=== PATIENT | male | born 2000 | race Caucasian/White ===

== ENCOUNTER 2021-01-23 05:06 | Emergency (ER) | payer OTHER ==
[2021-01-23] MEDS ORDERED: DIAZEPAM 2 MG TABLET ONE (05:44)
--- NOTE | 2021-01-23 06:23 | ER ---
Nurse's Notes [facility] Name: Selin Aguilar Age: 20 yrs Sex: Male : 2000 Arrival Date: 01/23/2021 Time: 05:06 Bed 13 Private MD: Diagnosis: Anxiety disorder, unspecified;Hyperventilation Presentation: 01/23 05:29 Chief complaint: Patient states: SHAKINESS IS WORSE SINCE YESTERDAY. DENIES TAKING ANY rv MEDICATION. Coronavirus screen: Client denies travel out of the [place] in the last 14 days. Ebola Screen: No symptoms or risks identified at this time. Initial Sepsis Screen: Does the patient meet any 2 criteria? No. Patient's initial sepsis screen is negative. Does the patient have a suspected source of infection? No. Patient's initial sepsis screen is negative. Risk Assessment: Do you want to hurt yourself or someone else? Patient reports no desire to harm self or others. Onset of symptoms was January 22, 2021. 05:29 Method Of Arrival: Ambulatory rv 05:29 Acuity: NEETA 3 rv Triage Assessment: 05:30 General: Appears uncomfortable, Behavior is anxious. Pain: Denies pain. EENT: No signs rv and/or symptoms were reported regarding the EENT system. Neuro: Level of Consciousness is awake, alert, obeys commands, Oriented to person, place, time, situation. Cardiovascular: Patient's skin is warm and dry. Rhythm is sinus rhythm. Respiratory: Airway is patent Respiratory effort is even, unlabored. Derm: Skin is intact. Historical: - Allergies: 05:30 No Known Allergies; rv - PMHx: 05:30 None; rv - PSHx: 05:30 None; rv - Immunization history:: Adult Immunizations up to date. - Social history:: Smoking status: Reported history of juuling and/or vaping. - Family history:: not pertinent. - Hospitalizations: : No recent hospitalization is reported. Screenin:31 Abuse screen: Denies threats or abuse. Denies injuries from another. Nutritional rv screening: No deficits noted. Tuberculosis screening: No symptoms or risk factors identified. Fall Risk None identified. Assessment: 06:35 Reassessment: Patient appears in no apparent distress at this time. Patient and/or jb4 family updated on plan of care and expected duration. Pain level reassessed. Patient is alert, oriented x 3, equal unlabored respirations, skin warm/dry/pink. Vital Signs: 05:18 BP 135 / 87; Pulse 84; Resp 24 S; Temp 98.1(O); Pulse Ox 100% on R/A; mw2 06:15 BP 136 / 76; Pulse 66; Resp 16; Pulse Ox 98% on R/A; jb4 ED Course: 05:06 Patient arrived in ED. cl3 05:09 Clark Maharaj MD is Attending Physician. rn 05:18 Josh Ramirez, ENZO is Primary Nurse. rv 05:30 Triage completed. rv 05:31 Arm band placed on left wrist. Patient placed in the treatment room, on a stretcher, rv Patient notified of wait time. 05:31 Patient has correct armband on for positive identification. Pulse ox on. NIBP on. rv 05:32 No provider procedures requiring assistance completed. rv 06:15 Patient did not have IV access during this emergency room visit. jb4 Administered Medications: 05:32 Drug: Valium 2 mg Route: PO; rv Outcome: 06:23 Discharge ordered by . rn 06:36 Discharged to home ambulatory. jb4 06:36 Condition: stable 06:36 Discharge instructions given to patient, Instructed on discharge instructions, follow up and referral plans. medication usage, Demonstrated understanding of instructions, follow-up care, medications, Prescriptions given X 1. 06:37 Patient left the ED. jb4 Signatures: Clark Maharaj MD MD rn Bryson, James, RN RN jb4 Kavita Chacon mw2 Josh Ramirez RN RN rv Urban Roque cl3
--- NOTE | 2021-01-23 06:23 | EDPHYS ---
Physician Documentation [facility] Name: Selin Aguilar Age: 20 yrs Sex: Male : 2000 Arrival Date: 01/23/2021 Time: 05:06 Bed 13 Private MD: ED Physician Clark Maharaj HPI: 01/23 05:29 This 20 yrs old Male presents to ER via Unassigned with complaints of rn Anxiety, Dry Mouth, Numbness Of Face. 05:29 Reports anxiety, dry mouth, intermittent palpitations, numbness over entire body. No rn fever/sob/chest pain/abd pain. No vomiting/diarrhea.. Onset: The symptoms/episode began/occurred a few days ago. Severity of symptoms: At their worst the symptoms were moderate in the emergency department the symptoms have improved. The patient has experienced a previous episode. The patient has not recently seen a physician. Reports long history of anxiety, has only gotten this bad one other time. . Doesn't take anything for anxiety. Historical: - Allergies: 05:30 No Known Allergies; rv - PMHx: 05:30 None; rv - PSHx: 05:30 None; rv - Immunization history:: Adult Immunizations up to date. - Social history:: Smoking status: Reported history of juuling and/or vaping. - Family history:: not pertinent. - Hospitalizations: : No recent hospitalization is reported. ROS: 05:29 Constitutional: Negative for fever, chills, and weight loss, Eyes: Negative for injury, rn pain, redness, and discharge, Neck: Negative for injury, pain, and swelling, Cardiovascular: Negative for chest pain, and edema, Respiratory: Negative for shortness of breath, cough, wheezing, and pleuritic chest pain, Abdomen/GI: Negative for abdominal pain, nausea, vomiting, diarrhea, and constipation, Back: Negative for injury and pain, : Negative for injury, bleeding, discharge, and swelling, MS/Extremity: Negative for injury and deformity, Skin: Negative for injury, rash, and discoloration, Neuro: Negative for headache, weakness, and seizure. 05:29 All other systems are negative. rn Exam: 05:29 Constitutional: This is a well developed, well nourished patient who is awake, alert, rn appears anxious, shaking, ambulatory to room without difficulty Head/Face: Normocephalic, atraumatic. Eyes: Pupils equal round and reactive to light, extra-ocular motions intact. Lids and lashes normal. Conjunctiva and sclera are non-icteric and not injected. Cornea within normal limits. Periorbital areas with no swelling, redness, or edema. Cardiovascular: Regular rate and rhythm. No pulse deficits. Respiratory: Mild tachypnea, able to slow it down with coaching Abdomen/GI: soft, non-tender Skin: Warm, dry MS/ Extremity: Pulses equal, no cyanosis. Neurovascular intact. Full, normal range of motion. Equal circumference. Neuro: Awake and alert, GCS 15, oriented to person, place, time, and situation. Cranial nerves II-XII grossly intact. Motor strength 5/5 in all extremities. Sensory grossly intact. Cerebellar exam normal. Normal gait. Vital Signs: 05:18 BP 135 / 87; Pulse 84; Resp 24 S; Temp 98.1(O); Pulse Ox 100% on R/A; mw2 06:15 BP 136 / 76; Pulse 66; Resp 16; Pulse Ox 98% on R/A; jb4 MDM: 05:09 Patient medically screened. rn 06:19 Differential Diagnosis anxiety, panic attack. Data reviewed: vital signs, nurses notes, furnace attendant test result(s), EKG, and as a result, I will discharge patient. Counseling: I had a detailed discussion with the patient and/or guardian regarding: the historical points, exam findings, and any diagnostic results supporting the discharge/admit diagnosis, lab results, the need for outpatient follow up, to return to the emergency department if symptoms worsen or persist or if there are any questions or concerns that arise at home. Response to treatment: the patient's symptoms have markedly improved after treatment, and as a result, I will discharge patient. Special discussion: I discussed with the patient/guardian in detail that at this point there is no indication for admission to the hospital. It is understood, however, that if the symptoms persist or worsen the patient needs to return immediately for re-evaluation. Based on the history and exam findings, there is no indication for further emergent testing or inpatient evaluation. I discussed with the patient/guardian the need to see the psychiatrist for further evaluation of the symptoms. ED course: Pt feels much better, no longer shaking or having tingling sensation. Stable vitals, normal glucose and no ischemia on ecg. 01/23 05:35 Order name: Glucose, Ancillary Testing EDGA 01/23 05:19 Order name: Glucose Level; Complete Time: 05:32 rn 01/23 05:19 Order name: EKG; Complete Time: 05:19 rn 01/23 05:19 Order name: EKG - Nurse/Tech; Complete Time: 05:32 rn Administered Medications: 05:32 Drug: Valium 2 mg Route: PO; rv Disposition: 01/23/21 06:23 Discharged to Home. Impression: Anxiety disorder, unspecified, Hyperventilation. - Condition is Stable. - Discharge Instructions: Panic Attacks, Hyperventilation, Generalized Anxiety Disorder. - Prescriptions for Zoloft 50 mg Oral Tablet - take 1 tablet by ORAL route once daily; 60 tablet. - Medication Reconciliation Form, Thank You Letter, Antibiotic Education, Prescription Opioid Use form. - Follow up: Private Physician; When: As needed; Reason: Recheck today's complaints, Re-evaluation by your physician. - Problem is an acute exacerbation. - Symptoms have improved. Signatures: Dispatcher [employer] [facility] Clark Maharaj MD MD rn Bryson, James, RN RN jb4 Josh Ramirez RN RN rv Corrections: (The following items were deleted from the chart) 06:37 06:23 01/23/2021 06:23 Discharged to Home. Impression: Anxiety disorder, unspecified; jb4 Hyperventilation. Condition is Stable. Forms are Medication Reconciliation Form, Thank You Letter, Antibiotic Education, Prescription Opioid Use. Follow up: Private Physician; When: As needed; Reason: Recheck today's complaints, Re-evaluation by your physician. Problem is an acute exacerbation. Symptoms have improved. rn
[2021-01-23 06:42] VITALS: TEMP 98.1
[2021-01-23 06:43] VITALS: BP 136/76; O2SAT 98
== END 2021-01-23 06:37 | disposition home or self-care (01) ==
LOC: ER 05:06
DX: R06.4 Hyperventilation (principal)
CPT/HCPCS: 82947; 93005; 99284

== ENCOUNTER 2021-01-28 05:41 | Emergency (ER) | payer OTHER ==
[2021-01-28] MEDS ORDERED: LORazepam 2 MG/ML VIAL ONE (06:31)
[2021-01-28 06:40] LABS: Absolute Lymphocytes (CBC) 2.2 K/uL (0.7-4.9); Basophils % 1.2 % (0-1.3); Hematocrit 46.1 % (39.6-49.0); Lymphocytes % 19.8 % (15.3-44.8); MPV 8.1 fL (7.6-11.3); RBC Red Blood Cell Count 5.42 M/uL (4.33-5.43)
[2021-01-28 06:57] LABS: Barbiturates NEGATIVE (NEGATIVE); Benzodiazepines NEGATIVE (NEGATIVE); Cocaine NEGATIVE (NEGATIVE); METHAMPHETAM NEGATIVE (NEGATIVE); Methadone NEGATIVE (NEGATIVE); Opiates NEGATIVE (NEGATIVE); Phencyclidine NEGATIVE (NEGATIVE); THC Cannibis NEGATIVE (NEGATIVE)
[2021-01-28 07:04] LABS: Protime INR 1.03
[2021-01-28 07:33] LABS: Troponin (Emerg Dept Use Only) < 0.02 ng/mL (0.0-0.045)
[2021-01-28 07:35] LABS: ALT/SGPT 34 U/L (12-78); AST/SGOT 19 U/L (15-37); BUN Blood Urea Nitrogen 12 mg/dL (7-18); Bicarbonate 23 mmol/L (21-32); Bilirubin Direct < 0.1 mg/dL (0-0.2); Bilirubin Total 0.3 mg/dL (0.2-1.0); Glucose Level 111 mg/dL (74-106); Potassium 3.8 mmol/L (3.5-5.1); Protein, Total 8.1 g/dL (6.4-8.2); Sodium Level 141 mmol/L (136-145)
[2021-01-28 07:37] LABS: Alkaline Phosphatase ND U/L (45-117)
--- NOTE | 2021-01-28 07:45 | RAD REPORT ---
EXAM DESCRIPTION: Josr Single View01/28/2021 7:34 am CLINICAL HISTORY: Cough COMPARISON: none FINDINGS: The lungs appear clear of acute infiltrate. The heart is normal size IMPRESSION: No acute abnormalities displayed
[2021-01-28] MEDS ORDERED: ACETAMINOPHEN 500 MG TAB ONE (09:12)
--- NOTE | 2021-01-28 09:26 | ER ---
Nurse's Notes [facility] Name: Selin Aguilar Age: 20 yrs Sex: Male : 2000 Arrival Date: 01/28/2021 Time: 05:41 Bed 16 Private MD: Diagnosis: Anxiety disorder, unspecified Presentation: 01/28 05:50 Chief complaint: Patient states: for the past couple of days i've been anxious, my mg2 heart is racing, i have nausea, dizziness and headache and im worried i have cough with mucus. Coronavirus screen: Client denies travel out of the [place] in the last 14 days. Ebola Screen: No symptoms or risks identified at this time. Initial Sepsis Screen: Does the patient meet any 2 criteria? No. Patient's initial sepsis screen is negative. Does the patient have a suspected source of infection? No. Patient's initial sepsis screen is negative. Risk Assessment: Do you want to hurt yourself or someone else? Patient reports no desire to harm self or others. Onset of symptoms was January 27, 2021. 05:50 Method Of Arrival: Ambulatory mg2 05:50 Acuity: NEETA 3 mg2 Triage Assessment: 05:56 General: Appears in no apparent distress. comfortable, Behavior is calm, cooperative. mg2 Pain: Denies pain. EENT: No deficits noted. Neuro: Level of Consciousness is awake, alert, obeys commands, Oriented to person, place, time, situation. Cardiovascular: Capillary refill < 3 seconds Patient's skin is warm and dry. Respiratory: Airway is patent Respiratory effort is even, unlabored, Respiratory pattern is regular, symmetrical. GI: No signs and/or symptoms were reported involving the gastrointestinal system. : No signs and/or symptoms were reported regarding the genitourinary system. Derm: Skin is intact, is healthy with good turgor, Skin is pink, warm \T\ dry. normal. Musculoskeletal: Circulation, motion, and sensation intact. Capillary refill. Historical: - Allergies: 05:54 No Known Allergies; mg2 - Home Meds: 05:54 Seroquel Oral [Active]; zoloft [Active]; mg2 - PMHx: 05:54 Anxiety; adhd; mg2 - PSHx: 05:54 None; mg2 - Immunization history:: Flu vaccine status is unknown. - Social history:: Smoking status: Reported history of juuling and/or vaping. Patient/guardian denies using alcohol, street drugs, IV drugs. Screenin:57 Abuse screen: Denies threats or abuse. Denies injuries from another. Nutritional mg2 screening: No deficits noted. Tuberculosis screening: No symptoms or risk factors identified. Fall Risk None identified. Assessment: 05:57 General: see triage note. mg2 07:23 Reassessment: Patient states feeling better. General: Appears in no apparent distress. jd3 comfortable, Behavior is calm, cooperative, appropriate for age. Pain: Denies pain. Neuro: Level of Consciousness is awake, alert, obeys commands, Oriented to person, place, time, situation. Cardiovascular: Denies chest pain, Capillary refill < 3 seconds Patient's skin is warm and dry. Respiratory: Airway is patent Respiratory effort is even, unlabored, Respiratory pattern is regular, symmetrical, Denies cough, shortness of breath. GI: No signs and/or symptoms were reported involving the gastrointestinal system. : No signs and/or symptoms were reported regarding the genitourinary system. EENT: No signs and/or symptoms were reported regarding the EENT system. Derm: Skin is intact, Skin is dry, Skin is normal, Skin temperature is warm. Musculoskeletal: Circulation, motion, and sensation intact. Range of motion: intact in all extremities. 08:32 Reassessment: Patient appears in no apparent distress at this time. No changes from jd3 previously documented assessment. Patient and/or family updated on plan of care and expected duration. Pain level reassessed. Patient is alert, oriented x 3, equal unlabored respirations, skin warm/dry/pink. awaiting results. 09:36 Reassessment: Patient appears in no apparent distress at this time. Patient and/or jd3 family updated on plan of care and expected duration. Pain level reassessed. Patient is alert, oriented x 3, equal unlabored respirations, skin warm/dry/pink. pt reported understanding of discharge instructions. even and steady gait upon discharge Patient states feeling better. Vital Signs: 05:50 BP 145 / 67; Pulse 90; Resp 18; Temp 99(TE); Pulse Ox 96% ; Weight 136.08 kg; Height 6 mg2 ft. 4 in. (193.04 cm); Pain 0/10; 07:24 BP 158 / 74; Pulse 81; Resp 17 S; Temp 98.0(TE); Pulse Ox 98% on R/A; jd3 08:31 BP 117 / 79; Pulse 72; Resp 16 S; Pulse Ox 98% on R/A; jd3 09:37 BP 131 / 74; Pulse 79; Resp 17 S; Pulse Ox 99% on R/A; jd3 05:50 Body Mass Index 36.52 (136.08 kg, 193.04 cm) mg2 ED Course: 05:41 Patient arrived in ED. cl3 05:50 Hayden Lutz, RN is Primary Nurse. mg2 05:52 Eric Cabrera MD is Attending Physician. mh7 05:53 Triage completed. mg2 05:54 Arm band placed on. mg2 05:57 No provider procedures requiring assistance completed. mg2 05:58 Patient has correct armband on for positive identification. mg2 06:20 Inserted saline lock: 20 gauge in left forearm, using aseptic technique. Blood mg2 collected. 07:20 Attending Physician role handed off by Eric Cabrera MD kdr 07:20 Kenneth Moran MD is Attending Physician. kdr 07:34 Chest Single View XRAY In Process Unspecified. EDMS 07:43 Primary Nurse role handed off by Hayden Lutz RN 08:31 Ruben Quintana RN is Primary Nurse. jd3 09:37 IV discontinued, intact, bleeding controlled, No redness/swelling at site. Pressure jd3 dressing applied. Administered Medications: 06:20 Drug: Ativan 1 mg Route: IVP; Site: left forearm; mg2 07:20 Follow up: Response: No adverse reaction jd3 08:57 Drug: Tylenol 1000 mg Route: PO; jd3 09:15 Follow up: Response: No adverse reaction jd3 Outcome: 09:25 Discharge ordered by . kdr 09:37 Discharged to home ambulatory, with family. jd3 09:37 Condition: stable 09:37 Discharge instructions given to patient, Instructed on discharge instructions, follow up and referral plans. Demonstrated understanding of instructions, follow-up care. 09:38 Patient left the ED. jd3 Signatures: Dispatcher [employer] EDMS Kenneth Moran MD MD kdr Ruben Quintana RN RN jd3 Kayley Rodriguez Hayden Lutz RN RN mg2 Urban Roque3 Eric Cabrera MD MD mh7 Corrections: (The following items were deleted from the chart) 05:56 05:50 Pulse 90bpm; Resp 18bpm; Pulse Ox 96%; 136.08 kg; Height 6 ft. 4 in.; BMI: 36.5; mg2 Pain 0/10; mg2
--- NOTE | 2021-01-28 09:26 | EDPHYS ---
Physician Documentation [facility] Name: Selin Aguilar Age: 20 yrs Sex: Male : 2000 Arrival Date: 01/28/2021 Time: 05:41 Bed 16 Private MD: ED Physician Kenneth Moran HPI: 01/28 06:53 This 20 yrs old Male presents to ER via Ambulatory with complaints of Rapid mh7 Heart Rate, Dizziness. 06:53 The patient presents with a history of heart racing. Context: The symptoms occur with mh7 anxiety. Onset: The symptoms/episode began/occurred 5 day(s) ago. Duration: The patient or guardian reports multiple episodes, that are intermittent, that wax and wane. Modifying factors: The symptoms are aggravated by anxiety, The symptoms are alleviated by nothing. Associated signs and symptoms: Pertinent positives: cough, lightheadedness, nausea, Pertinent negatives: chest pain, fever, SOB, syncope, near-syncope, unusual stressors, vertigo, vomiting. Severity of symptoms: At their worst the symptoms were moderate 2 day(s) ago, in the emergency department the symptoms are unchanged. The patient has experienced similar episodes in the past, a few times. The patient has been recently seen by a physician: the patient's primary care provider. Historical: - Allergies: 05:54 No Known Allergies; mg2 - Home Meds: 05:54 Seroquel Oral [Active]; zoloft [Active]; mg2 - PMHx: 05:54 Anxiety; adhd; mg2 - PSHx: 05:54 None; mg2 - Immunization history:: Flu vaccine status is unknown. - Social history:: Smoking status: Reported history of juuling and/or vaping. Patient/guardian denies using alcohol, street drugs, IV drugs. ROS: 06:53 Constitutional: Negative for fever, chills, and weight loss, Eyes: Negative for injury, mh7 pain, redness, and discharge, ENT: Negative for injury, pain, and discharge, Neck: Negative for injury, pain, and swelling, Back: Negative for injury and pain, : Negative for injury, bleeding, discharge, and swelling, MS/Extremity: Negative for injury and deformity, Skin: Negative for injury, rash, and discoloration, Neuro: Negative for headache, weakness, numbness, tingling, and seizure, Psych: Negative for depression, anxiety, suicide ideation, homicidal ideation, and hallucinations, Allergy/Immunology: Negative for hives, rash, and allergies, Endocrine: Negative for neck swelling, polydipsia, polyuria, polyphagia, and marked weight changes, Hematologic/Lymphatic: Negative for swollen nodes, abnormal bleeding, and unusual bruising. Exam: 06:53 Head/Face: Normocephalic, atraumatic. Eyes: Pupils equal round and reactive to light, mh7 extra-ocular motions intact. Lids and lashes normal. Conjunctiva and sclera are non-icteric and not injected. Cornea within normal limits. Periorbital areas with no swelling, redness, or edema. ENT: Nares patent. No nasal discharge, no septal abnormalities noted. Tympanic membranes are normal and external auditory canals are clear. Oropharynx with no redness, swelling, or masses, exudates, or evidence of obstruction, uvula midline. Mucous membranes moist. Neck: Trachea midline, no thyromegaly or masses palpated, and no cervical lymphadenopathy. Supple, full range of motion without nuchal rigidity, or vertebral point tenderness. No Meningismus. Chest/axilla: Normal chest wall appearance and motion. Nontender with no deformity. No lesions are appreciated. Cardiovascular: Regular rate and rhythm with a normal S1 and S2. No gallops, murmurs, or rubs. Normal PMI, no JVD. No pulse deficits. Respiratory: Lungs have equal breath sounds bilaterally, clear to auscultation and percussion. No rales, rhonchi or wheezes noted. No increased work of breathing, no retractions or nasal flaring. Abdomen/GI: Soft, non-tender, with normal bowel sounds. No distension or tympany. No guarding or rebound. No evidence of tenderness throughout. Back: No spinal tenderness. No costovertebral tenderness. Full range of motion. Skin: Warm, dry with normal turgor. Normal color with no rashes, no lesions, and no evidence of cellulitis. MS/ Extremity: Pulses equal, no cyanosis. Neurovascular intact. Full, normal range of motion. Neuro: Awake and alert, GCS 15, oriented to person, place, time, and situation. Cranial nerves II-XII grossly intact. Motor strength 5/5 in all extremities. Sensory grossly intact. Cerebellar exam normal. Normal gait. 06:53 Constitutional: The patient appears in no acute distress, alert, awake, anxious. 06:53 Psych: Behavior/mood is cooperative, anxious, Affect is calm, Oriented to person, place, time, Patient has no thoughts/intents to harm self or others. Judgement / Insight is normal. Memory is normal. Delusions/hallucinations are not present. Vital Signs: 05:50 BP 145 / 67; Pulse 90; Resp 18; Temp 99(TE); Pulse Ox 96% ; Weight 136.08 kg; Height 6 mg2 ft. 4 in. (193.04 cm); Pain 0/10; 07:24 BP 158 / 74; Pulse 81; Resp 17 S; Temp 98.0(TE); Pulse Ox 98% on R/A; jd3 08:31 BP 117 / 79; Pulse 72; Resp 16 S; Pulse Ox 98% on R/A; jd3 09:37 BP 131 / 74; Pulse 79; Resp 17 S; Pulse Ox 99% on R/A; jd3 05:50 Body Mass Index 36.52 (136.08 kg, 193.04 cm) mg2 MDM: 07:16 Transition of care: After a detail discussion of the patient's case, care is 7 transferred to Kenneth Moran MD. 09:25 Patient medically screened. kdr 16:32 Data reviewed: vital signs, nurses notes, lab test result(s), radiologic studies. kdr Counseling: I had a detailed discussion with the patient and/or guardian regarding: the historical points, exam findings, and any diagnostic results supporting the discharge/admit diagnosis, lab results, radiology results, the need for outpatient follow up. 01/28 06:10 Order name: Basic Metabolic Panel; Complete Time: 09:15 [facility] 01/28 06:10 Order name: CBC with Diff; Complete Time: 06:52 01/28 06:10 Order name: ETOH Level; Complete Time: 07: 01/28 06:10 Order name: Hepatic Function; Complete Time: 09:15 [facility] 01/28 06:10 Order name: PT-INR; Complete Time: 07:33 01/28 06:10 Order name: Ptt, Activated; Complete Time: 07:33 01/28 06:10 Order name: Salicylate; Complete Time: 07:33 mh01/28 06:10 Order name: Urine Drug Screen; Complete Time: 07:33 7 01/28 06:46 Order name: Urine Dipstick--Ancillary (enter results) eb 01/28 06:47 Order name: Urine Dipstick-Ancillary EDNC 01/28 06:57 Order name: TSH; Complete Time: 09:15 [facility] 01/28 06:57 Order name: Troponin (emerg Dept Use Only); Complete Time: 09:15 [facility] 01/28 07:33 Order name: COVID-19 : Document "Date of Symptom Onset" if Symptomatic. d3 01/28 05:55 Order name: EKG - Nurse/Tech; Complete Time: 05:55 mg2 01/28 06:10 Order name: EKG; Complete Time: 06:10 [facility] 01/28 06:10 Order name: IV Saline Lock; Complete Time: 06:36 7 01/28 06:10 Order name: Labs collected and sent; Complete Time: 06:36 [facility] 01/28 06:10 Order name: Urine Dipstick-Ancillary (obtain specimen); Complete Time: 06:36 [facility] 01/28 06:52 Order name: Chest Single View XRAY; Complete Time: 09:15 7 01/28 08:53 Order name: SARS-COV-2 RT PCR; Complete Time: 09:15 EDNC Administered Medications: 06:20 Drug: Ativan 1 mg Route: IVP; Site: left forearm; mg2 07:20 Follow up: Response: No adverse reaction jd3 08:57 Drug: Tylenol 1000 mg Route: PO; jd3 09:15 Follow up: Response: No adverse reaction jd3 Disposition: 01/28/21 09:25 Discharged to Home. Impression: Anxiety disorder, unspecified. - Condition is Stable. - Discharge Instructions: Panic Attacks, [id number], Generalized Anxiety Disorder. - Medication Reconciliation Form, Thank You Letter, Work release form form. - Follow up: Private Physician; When: 2 - 3 days; Reason: If symptoms return, Further diagnostic work-up, Recheck today's complaints, Continuance of care, Re-evaluation by your physician. - Problem is an acute exacerbation. - Symptoms have improved. Signatures: Dispatcher [employer] EDMS Kenneth Moran MD MD kdr Davies, Jonathon, RN RN jd3 Hayden Lutz RN RN mg2 Eric Cabrera MD MD mh7 Corrections: (The following items were deleted from the chart) 06:48 06:10 ACETAMINOPHEN+C.LAB.BRZ ordered. EDMS EDMS 08:08 07:34 CORONAVIRUS ordered. EDMS EDMS 09:38 09:25 01/28/2021 09:25 Discharged to Home. Impression: Anxiety disorder, unspecified. jd3 Condition is Stable. Forms are Medication Reconciliation Form, Thank You Letter, Antibiotic Education, Prescription Opioid Use. Follow up: Private Physician; When: 2 - 3 days; Reason: If symptoms return, Further diagnostic work-up, Recheck today's complaints, Continuance of care, Re-evaluation by your physician. Problem is an acute exacerbation. Symptoms have improved. kdr
[2021-01-28 09:46] VITALS: TEMP 98
[2021-01-28 09:49] VITALS: BP 131/74; O2SAT 99
[2021-01-28 09:57] LABS: Urine Blood TRACE (NEG); Urine Glucose NEGATIVE (NEG); Urine Protein NEGATIVE (NEG); Urine Specific Gravity 1.025 (1.005-1.030)
== END 2021-01-28 09:38 | disposition home or self-care (01) ==
LOC: ER 05:41
DX: F41.9 Anxiety disorder, unspecified (principal); Z20.822 Contact with and (suspected) exposure to COVID-19; F90.9 Attention-deficit hyperactivity disorder, unspecified type
CPT/HCPCS: 85025; 80048; 36415; 80320; 85610; 80329; 80076; 80307 ×8; 85730; 84443; 81003; 84484; 71045; 96374; 99284; U0003; 93005

== ENCOUNTER 2021-02-23 18:43 | Emergency (ER) | payer OTHER | END 2021-02-23 18:50 | disposition left against medical advice (07) | LOC: ER 18:43 | DX: Z02.9 Encounter for administrative examinations, unspecified (principal) ==

== ENCOUNTER 2021-02-27 14:47 | Emergency (ER) | payer OTHER ==
[2021-02-27 15:41] LABS: Absolute Lymphocytes (CBC) 1.3 K/uL (0.7-4.9); Basophils % 0.9 % (0-1.3); Hematocrit 43.8 % (39.6-49.0); Lymphocytes % 16.7 % (15.3-44.8); MPV 8.1 fL (7.6-11.3); RBC Red Blood Cell Count 5.15 M/uL (4.33-5.43)
[2021-02-27] MEDS ORDERED: LORazepam 2 MG/ML VIAL ONE (15:46)
[2021-02-27] MEDS ORDERED: NA CHLORIDE 0.9% 1,000 ML ONE (15:47)
[2021-02-27 15:52] LABS: ALT/SGPT 32 U/L (12-78); AST/SGOT 13 U/L (15-37); Alkaline Phosphatase 74 U/L (45-117); BUN Blood Urea Nitrogen 8 mg/dL (7-18); Bicarbonate 27 mmol/L (21-32); Bilirubin Total 0.5 mg/dL (0.2-1.0); Glucose Level 94 mg/dL (74-106); Potassium 3.9 mmol/L (3.5-5.1); Protein, Total 7.7 g/dL (6.4-8.2); Sodium Level 141 mmol/L (136-145)
--- NOTE | 2021-02-27 16:16 | EDPHYS ---
Physician Documentation [facility] Name: Selin Aguilar Age: 21 yrs Sex: Male : 2000 Arrival Date: 02/27/2021 Time: 14:49 Bed 24 Private MD: ED Physician Tio Del Castillo HPI: 02/27 15:20 This 21 yrs old Male presents to ER via Ambulatory with complaints of vaccine ralph side effects. 15:20 The patient presents with a history of irregular heart beat. Context: The symptoms ralph occur with anxiety, with light activity. Onset: The symptoms/episode began/occurred 2 day(s) ago. Duration: The patient or guardian reports multiple episodes, that are intermittent, with no pattern. Modifying factors: The symptoms are aggravated by nothing. The symptoms are alleviated by nothing. Took [place] vaccine, anxious ever since. Associated signs and symptoms: The patient has no apparent associated signs or symptoms. Severity of symptoms: At their worst the symptoms were mild moderate in the emergency department the symptoms are unchanged. Historical: - Allergies: 15:00 No Known Allergies; aa5 - Home Meds: 15:00 inhaler [Active]; aa5 - PMHx: 15:00 adhd; Anxiety; Asthma; aa5 - Immunization history:: Adult Immunizations up to date. - Social history:: Smoking status: Reported history of juuling and/or vaping. - Family history:: not pertinent. ROS: 15:20 Constitutional: Negative for fever, chills, and weight loss, Eyes: Negative for injury, ralph pain, redness, and discharge, ENT: Negative for injury, pain, and discharge, Neck: Negative for injury, pain, and swelling, Cardiovascular: Negative for chest pain, palpitations, and edema, Respiratory: Negative for shortness of breath, cough, wheezing, and pleuritic chest pain, Abdomen/GI: Negative for abdominal pain, nausea, vomiting, diarrhea, and constipation, Back: Negative for injury and pain, : Negative for injury, bleeding, discharge, and swelling, MS/Extremity: Negative for injury and deformity, Skin: Negative for injury, rash, and discoloration, Neuro: Negative for headache, weakness, numbness, tingling, and seizure, Allergy/Immunology: Negative for hives, rash, and allergies, Endocrine: Negative for neck swelling, polydipsia, polyuria, polyphagia, and marked weight changes, Hematologic/Lymphatic: Negative for swollen nodes, abnormal bleeding, and unusual bruising. 15:20 Psych: Positive for anxiety. Exam: 15:20 Constitutional: This is a well developed, well nourished patient who is awake, alert, ralph and in no acute distress. Head/Face: Normocephalic, atraumatic. Eyes: Pupils equal round and reactive to light, extra-ocular motions intact. Lids and lashes normal. Conjunctiva and sclera are non-icteric and not injected. Cornea within normal limits. Periorbital areas with no swelling, redness, or edema. ENT: Nares patent. No nasal discharge, no septal abnormalities noted. Tympanic membranes are normal and external auditory canals are clear. Oropharynx with no redness, swelling, or masses, exudates, or evidence of obstruction, uvula midline. Mucous membranes moist. Neck: Trachea midline, no thyromegaly or masses palpated, and no cervical lymphadenopathy. Supple, full range of motion without nuchal rigidity, or vertebral point tenderness. No Meningismus. Chest/axilla: Normal chest wall appearance and motion. Nontender with no deformity. No lesions are appreciated. Cardiovascular: Regular rate and rhythm with a normal S1 and S2. No gallops, murmurs, or rubs. Normal PMI, no JVD. No pulse deficits. Respiratory: Lungs have equal breath sounds bilaterally, clear to auscultation and percussion. No rales, rhonchi or wheezes noted. No increased work of breathing, no retractions or nasal flaring. Abdomen/GI: Soft, non-tender, with normal bowel sounds. No distension or tympany. No guarding or rebound. No evidence of tenderness throughout. Back: No spinal tenderness. No costovertebral tenderness. Full range of motion. Male : Normal genitalia with no discharge or lesions. Skin: Warm, dry with normal turgor. Normal color with no rashes, no lesions, and no evidence of cellulitis. MS/ Extremity: Pulses equal, no cyanosis. Neurovascular intact. Full, normal range of motion. Neuro: Awake and alert, GCS 15, oriented to person, place, time, and situation. Cranial nerves II-XII grossly intact. Motor strength 5/5 in all extremities. Sensory grossly intact. Cerebellar exam normal. Normal gait. Psych: Awake, alert, with orientation to person, place and time. Behavior, mood, and affect are within normal limits. 15:24 Musculoskeletal/extremity: DVT Exam: No signs of deep vein thrombosis. no pain, no ralph swelling, no tenderness, negative Homans' sign noted on exam, no appreciated bluish discoloration, no erythema, no increased warmth. 15:29 ECG was reviewed by the Attending Physician. [facility] Vital Signs: 14:58 BP 149 / 77; Pulse 85; Resp 18 S; Temp 97.4(TE); Pulse Ox 100% on R/A; Weight 140.61 kg aa5 (R); Height 6 ft. 4 in. (193.04 cm) (R); 16:00 BP 139 / 75; Pulse 90; Resp 16 S; Pulse Ox 100% on R/A; aa5 14:58 Body Mass Index 37.73 (140.61 kg, 193.04 cm) aa5 MDM: 15:06 Patient medically screened. [facility] 15:24 Differential diagnosis: arrythmia, dehydration, stress disorder. Data reviewed: vital [facility] signs, nurses notes, lab test result(s), EKG. Data interpreted: lithographers printer: rate is 85 beats/min, rhythm is regular, Pulse oximetry: on room air is 100 %. Test interpretation: by ED physician or midlevel provider: ECG. Counseling: I had a detailed discussion with the patient and/or guardian regarding: the historical points, exam findings, and any diagnostic results supporting the discharge/admit diagnosis, the presence of at least one elevated blood pressure reading (>120/80) during this emergency department visit, lab results, radiology results, the need for outpatient follow up, for definitive care, a family practitioner, a psychiatrist. 02/27 15:15 Order name: Comprehensive Metabolic Panel; Complete Time: 16:13 [facility] 02/27 15:15 Order name: CBC with Diff; Complete Time: 16:13 [facility] 02/27 15:15 Order name: EKG; Complete Time: 15:16 [facility] 02/27 15:15 Order name: EKG - Nurse/Tech; Complete Time: 15:26 [facility] 02/27 15:15 Order name: Urine Dipstick-Ancillary (obtain specimen); Complete Time: 16:15 [facility] EC:29 Rate is 76 beats/min. Rhythm is regular. QRS [place] is Normal. SC interval is normal. QRS ralph interval is normal. QT interval is normal. No Q waves. T waves are Normal. No ST changes noted. Clinical impression: NSR w/ Non-specific ST/T Changes and No evidence of ischemia. Interpreted by me. Reviewed by me. Administered Medications: 15:36 Drug: NS 0.9% 1000 ml Route: IV; Rate: 1 bolus; Site: right antecubital; aa5 15:36 Drug: Ativan (LORazepam) 1 mg Route: IVP; Site: right antecubital; aa5 15:41 Follow up: Response: No adverse reaction aa5 Disposition: 02/27/21 16:15 Discharged to Home. Impression: Palpitations, Anxiety disorder, unspecified, Bipolar disorder, Adverse effect of other vaccines and biological substances - COVID. - Condition is Stable. - Discharge Instructions: Panic Attacks, Bipolar Disorder, Palpitations, Panic Attacks, [id number], Aspirin and Your Heart, Palpitations, [id number]. - Prescriptions for Zoloft 50 mg Oral Tablet - take 1 tablet by ORAL route once daily; 20 tablet. - Medication Reconciliation Form, Thank You Letter, Antibiotic Education, Prescription Opioid Use form. - Follow up: Private Physician; When: 2 - 3 days; Reason: Recheck today's complaints, Continuance of care, Re-evaluation by your physician. Follow up: Erasto Isaac; When: 2 - 3 days; Reason: Recheck today's complaints, Re-evaluation by your physician. - Problem is new. - Symptoms have improved. Signatures: Dispatcher [employer] [facility] Tio Del Castillo MD MD cha Calderon, Audri RN RN aa5 Corrections: (The following items were deleted from the chart) 16:37 16:15 02/27/2021 16:15 Discharged to Home. Impression: Palpitations; Anxiety disorder, aa5 unspecified; Bipolar disorder; Adverse effect of other vaccines and biological substances - COVID. Condition is Stable. Discharge Instructions: Panic Attacks, Bipolar Disorder, Palpitations, Panic Attacks, [id number], Aspirin and Your Heart, Palpitations, Mpvg-az-[id number]. Prescriptions for Zoloft 50 mg Oral Tablet - take 1 tablet by ORAL route once daily; 20 tablet. and Forms are Medication Reconciliation Form, Thank You Letter, Antibiotic Education, Prescription Opioid Use. Follow up: Private Physician; When: 2 - 3 days; Reason: Recheck today's complaints, Continuance of care, Re-evaluation by your physician. Follow up: Erasto Isaac; When: 2 - 3 days; Reason: Recheck today's complaints, Re-evaluation by your physician. Problem is new. Symptoms have improved. ralph
--- NOTE | 2021-02-27 16:16 | ER ---
Nurse's Notes [facility] Name: Selin Aguilar Age: 21 yrs Sex: Male : 2000 Arrival Date: 02/27/2021 Time: 14:49 Bed 24 Private MD: Diagnosis: Palpitations;Anxiety disorder, unspecified;Bipolar disorder;Adverse effect of other vaccines and biological substances-COVID Presentation: 02/27 14:58 Chief complaint: Patient states: "I got the first dose of the COVID-19 vaccine and now aa5 I am having nausea, headache, anxiety attacks, and my allergies are so bad". Initial Sepsis Screen: Does the patient meet any 2 criteria? No. Patient's initial sepsis screen is negative. Does the patient have a suspected source of infection? No. Patient's initial sepsis screen is negative. Risk Assessment: Do you want to hurt yourself or someone else? Patient reports no desire to harm self or others. Onset of symptoms was February 2021. 14:58 Method Of Arrival: Ambulatory aa5 14:58 Acuity: NEETA 3 aa5 14:58 Coronavirus screen: headache, nausea. Ebola Screen: Patient negative for fever greater aa5 than or equal to 101.5 degrees Fahrenheit, and additional compatible Ebola Virus Disease symptoms. Historical: - Allergies: 15:00 No Known Allergies; aa5 - Home Meds: 15:00 inhaler [Active]; aa5 - PMHx: 15:00 adhd; Anxiety; Asthma; aa5 - Immunization history:: Adult Immunizations up to date. - Social history:: Smoking status: Reported history of juuling and/or vaping. - Family history:: not pertinent. Screenin:01 Abuse screen: Denies threats or abuse. Nutritional screening: No deficits noted. aa5 Tuberculosis screening: No symptoms or risk factors identified. Fall Risk None identified. Assessment: 15:01 General: Appears uncomfortable, Behavior is cooperative, anxious. Pain: Complains of aa5 pain in head Pain currently is 7 out of 10 on a pain scale. Quality of pain is described as aching. 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 Gait is steady, Speech is normal, Facial symmetry appears normal. Cardiovascular: Heart tones S1 S2 present Rhythm is regular. Respiratory: Airway is patent Respiratory effort is even, unlabored, Respiratory pattern is regular, symmetrical, Denies shortness of breath. GI: Abdomen is round non-distended, Bowel sounds present X 4 quads. Abd is soft and non tender X 4 quads. Reports nausea, Patient currently denies diarrhea, vomiting. : No signs and/or symptoms were reported regarding the genitourinary system. EENT: Reports nasal discharge that is watery. Derm: Skin is pink, warm \\T\\ dry. Musculoskeletal: Range of motion: intact in all extremities. 15:41 Reassessment: Patient is alert, oriented x 3, equal unlabored respirations, skin aa5 warm/dry/pink. Patient states feeling better. Patient states symptoms have improved. Anxiety noted to be decreased. Pt sitting up in bed using his cell phone. . 16:35 Reassessment: Patient is alert, oriented x 3, equal unlabored respirations, skin aa5 warm/dry/pink. Patient states feeling better. Patient states symptoms have improved. Vital Signs: 14:58 BP 149 / 77; Pulse 85; Resp 18 S; Temp 97.4(TE); Pulse Ox 100% on R/A; Weight 140.61 kg aa5 (R); Height 6 ft. 4 in. (193.04 cm) (R); 16:00 BP 139 / 75; Pulse 90; Resp 16 S; Pulse Ox 100% on R/A; aa5 14:58 Body Mass Index 37.73 (140.61 kg, 193.04 cm) aa5 ED Course: 14:49 Patient arrived in ED. am2 14:58 Arm band placed on Patient placed in an exam room, on a stretcher. aa5 14:58 Patient has correct armband on for positive identification. Bed in low position. Call aa5 light in reach. Side rails up X2. Pulse ox on. NIBP on. 15:00 Triage completed. aa5 15:01 Justine Mcmahno, ENZO is Primary Nurse. aa5 15:06 Tio Del Castillo MD is Attending Physician. [facility] 15:35 Initial lab(s) drawn, by nc, sent to lab. Inserted saline lock: 20 gauge in right aa5 antecubital area, using aseptic technique. Blood collected. 16:14 Erasto Isaac MD is Referral Physician. [facility] 16:35 No provider procedures requiring assistance completed. IV discontinued, intact, aa5 bleeding controlled, No redness/swelling at site. Pressure dressing applied. Administered Medications: 15:36 Drug: NS 0.9% 1000 ml Route: IV; Rate: 1 bolus; Site: right antecubital; aa5 15:36 Drug: Ativan (LORazepam) 1 mg Route: IVP; Site: right antecubital; aa5 15:41 Follow up: Response: No adverse reaction aa5 Outcome: 16:15 Discharge ordered by . [facility] 16:35 Discharged to home ambulatory. aa5 16:35 Condition: improved 16:35 Discharge instructions given to patient, Instructed on discharge instructions, follow up and referral plans. medication usage, Demonstrated understanding of instructions, follow-up care, medications, Prescriptions given X 1. 16:37 Patient left the ED. aa5 Signatures: Tio Del Castillo MD MD cha Calderon, Audri, RN RN aa5 Salina Mckinnon am2 Corrections: (The following items were deleted from the chart) 15:15 14:58 Acuity: NEETA 5 aa5 aa5 16:47 15:01 GI: Abdomen is round non-distended, Bowel sounds present X 4 quads. Abd is soft aa5 and non tender X 4 quads. aa5 16:47 15:01 EENT: No signs and/or symptoms were reported regarding the EENT system. aa5 aa5
[2021-02-27 16:44] VITALS: BP 149/77; TEMP 97.4; O2SAT 100
--- NOTE | 2021-02-28 07:53 | EKG ---
Test Date: 2021-02-27 Test Time: 15:19:35 Core Loader: RUBIA MEASUREMENT RESULTS: Intervals: Rate: 76 MO: 170 QRSD: 104 QT: 364 QTc: 409 [place]: P: -5 MO: 170 QRS: 53 T: -11 INTERPRETIVE STATEMENTS: Normal sinus rhythm Inferior infarct, age undetermined Abnormal ECG Compared to ECG 01/28/2021 05:51:52 Myocardial infarct finding now present Electronically Signed On 02-28-21 07:52:00 CDT by Michael Winslow
[2021-02-28 12:18] LABS: Urine Blood NEGATIVE (Negative); Urine Glucose NEGATIVE (Negative); Urine Protein NEGATIVE (Negative); Urine Specific Gravity 1.015 (1.005-1.030); Urine pH 7.5 (5.0-7.0)
[2021-03-01 14:49] LABS: Urine Blood Negative (Negative); Urine Glucose Negative (Negative); Urine Protein Negative (Negative); Urine Specific Gravity 1.015 (1.005-1.030); Urine pH 7.5 (5.0-7.0)
== END 2021-02-27 16:37 | disposition home or self-care (01) ==
LOC: ER 14:47
DX: F41.9 Anxiety disorder, unspecified (principal); T88.1XXA Other complications following immunization, not elsewhere classified, initial encounter; F31.9 Bipolar disorder, unspecified; J45.909 Unspecified asthma, uncomplicated
CPT/HCPCS: 93005; 85025; 36415; 81003; 80053; 96374; 99284; J7030

== ENCOUNTER 2021-03-02 21:39 | Emergency (ER) | payer OTHER ==
[2021-03-02] MEDS ORDERED: DIAZEPAM 2 MG TABLET ONE (22:34)
--- NOTE | 2021-03-02 22:56 | ER ---
Nurse's Notes [facility] Name: Selin Aguilar Age: 21 yrs Sex: Male : 2000 Arrival Date: 03/02/2021 Time: 21:43 Bed 30 Private MD: Diagnosis: Anxiety disorder, unspecified Presentation: 03/02 21:48 Chief complaint: Patient states: headache, nausea and vomiting, lightheadedness, ca1 weakness, dizziness, off and on blurry vision, confused, anxiety all the time x 2 months. Coronavirus screen: Client denies travel out of the [place] in the last 14 days. nausea, vomiting. Client presents with at least one sign or symptom that may indicate coronavirus-19. Standard/surgical mask placed on the client. Provider contacted for isolation considerations. Ebola Screen: Patient negative for fever greater than or equal to 101.5 degrees Fahrenheit, and additional compatible Ebola Virus Disease symptoms Patient denies exposure to infectious person. Patient denies travel to an Ebola-affected area in the 21 days before illness onset. No symptoms or risks identified at this time. Initial Sepsis Screen: Does the patient meet any 2 criteria? No. Patient's initial sepsis screen is negative. Does the patient have a suspected source of infection? No. Patient's initial sepsis screen is negative. Risk Assessment: Do you want to hurt yourself or someone else? Patient reports no desire to harm self or others. Onset of symptoms was March 02, 2021. 21:48 Method Of Arrival: Wheelchair ca1 21:48 Acuity: NEETA 3 ca1 Triage Assessment: 22:24 Headache History: Denies prior headaches. General: Appears in no apparent distress. jm8 Behavior is cooperative, anxious. Pain: Also complains of no other associated symptoms. Pain: Pain began 1 day ago. Historical: - Allergies: 21:51 No Known Allergies; ca1 - Home Meds: 21:51 Zoloft [Active]; inhaler [Active]; ca1 - PMHx: 21:51 adhd; Anxiety; Asthma; ca1 - PSHx: 21:51 None; ca1 - Immunization history:: Client reports receiving the 1st dose of the Covid vaccine, Flu vaccine is not up to date. - Social history:: Smoking status: Reported history of juuling and/or vaping. Screenin:17 Abuse screen: Denies threats or abuse. Denies injuries from another. Nutritional jm8 screening: No deficits noted. Tuberculosis screening: No symptoms or risk factors identified. Fall Risk None identified. Assessment: 22:21 General: Appears in no apparent distress. Behavior is cooperative, anxious, restless, jm8 Denies fever, chills. Pain: Complains of pain in face Pain currently is 1 out of 10 on a pain scale. Neuro: No deficits noted. Level of Consciousness is awake, alert, obeys commands, Oriented to person, place, time. Neuro: Reports dizziness, headache since yesterday anxiety for over 2 months. Cardiovascular: No deficits noted. Respiratory: No deficits noted. GI: No deficits noted. : No deficits noted. EENT: No deficits noted. Derm: No deficits noted. Musculoskeletal: No deficits noted. Vital Signs: 21:48 BP 135 / 91; Pulse 88; Resp 16; Temp 97.3(TE); Pulse Ox 100% on R/A; Weight 133.36 kg; ca1 Height 6 ft. 4 in. (193.04 cm) (R); Pain 1/10; 23:19 BP 130 / 84; Pulse 82; Resp 16; Pulse Ox 100% ; jm8 21:48 Body Mass Index 35.79 (133.36 kg, 193.04 cm) ca1 ED Course: 21:43 Patient arrived in ED. bp1 21:51 Triage completed. ca1 21:51 Arm band placed on right wrist. ca1 21:58 [facility]C [facility] kb 21:58 Tio Del Castillo MD is Attending Physician. kb 22:17 Patient has correct armband on for positive identification. Bed in low position. Call jm8 light in reach. Side rails up X2. 22:17 No provider procedures requiring assistance completed. jm8 22:18 Patient did not have IV access during this emergency room visit. jm8 22:35 CT Head Brain wo Cont In Process Unspecified. EDMS Administered Medications: 22:16 Drug: Valium (diazepam) 2 mg Route: PO; jm8 23:18 Follow up: Response: No adverse reaction jm8 Outcome: 22:56 Discharge ordered by . kb 23:18 Discharged to home ambulatory. jm8 23:18 Condition: good 23:18 Discharge instructions given to patient, Instructed on discharge instructions, follow up and referral plans. Demonstrated understanding of instructions, follow-up care. 23:20 Patient left the ED. gio Signatures: Dispatcher [employer] EDStephanie Wong, ORLANDO ZHOU-Taina Benjamin RN RN Clarissa Poole Joseph, RN RN jm8 Corrections: (The following items were deleted from the chart) 22:18 22:17 No provider procedures requiring assistance completed. gio powers
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
[2021-03-02 23:50] VITALS: TEMP 97.3; O2SAT 100
[2021-03-02 23:52] VITALS: BP 130/84
--- NOTE | 2021-03-03 10:33 | RAD REPORT ---
EXAM DESCRIPTION: CT - Head Brain Wo Cont - 03/03/2021 6:36 am CLINICAL HISTORY: HEADACHE. TECHNIQUE: Axial, coronal, and sagittal images through the brain were performed in the absence of in travenous contrast. This exam was performed according to our departmental dose-optimization program w hich includes use of Automated Exposure Control, adjustment of the mA and/or kV according to patient size and/or use of iterative reconstruction technique. COMPARISON: None. FINDINGS: The brain parenchyma appears unremarkable. There is no intra-axial or extra-axial bleed se en. There is no mass or mass effect. The ventricles are normal in size shape and configuration. The o rbital contents appear unremarkable. The visualized paranasal sinuses and mastoid air cells are patent. No fracture is identified. IMPRESSION: No acute intracranial abnormality identified. Electronically signed by: Lauren Ling MD 03/02/2021 10:45 PM CDT Due to temporary technical issues with the PACS/Fluency reporting system, reports are being signed by the in house radiologist without review as a courtesy to ensure prompt reporting. The interpreting r adiologist is fully responsible for the content of the report.
== END 2021-03-02 23:20 | disposition home or self-care (01) ==
LOC: ER 21:39
DX: F41.9 Anxiety disorder, unspecified (principal)
CPT/HCPCS: 70450; 99283

== ENCOUNTER 2021-04-15 07:52 | Emergency (ER) | payer OTHER ==
--- OUTSIDE RECORDS SUMMARY | 2021-04-15 07:56 | XMS REPORT | Continuity of Care Document ---
:2000 Author Organization [facility] t Address [address] [place] [address] Care Team Providers Name Role Phone Jacob Bowling Attending Clinician Problems This patient has no known problems. Allergies, Adverse Reactions, Alerts This patient has no known allergies or adverse reactions. Medications This patient has no known medications. Procedures This patient has no known procedures. Encounters Start End Encounter Admission Attending Care Care Encounter Source Date/Time Date/Time Type Type Clinicians Facility Department ID 2021-03-04 2021-03-04 Emergency MARIZA Roy [id number] 16:10:00 19:18:00 Autumn Ornelas [id number] [place] [id number] [place] [id number] Results This patient has no known results.
[2021-04-15 09:57] LABS: Basophils % 0.7 % (0-1.3); Hematocrit 44.2 % (39.6-49.0); Lymphocytes % 20.4 % (15.3-44.8); MPV 7.6 fL (7.6-11.3); RBC Red Blood Cell Count 5.21 M/uL (4.33-5.43)
[2021-04-15 10:17] LABS: ALT/SGPT 43 U/L (12-78); AST/SGOT 17 U/L (15-37); Albumin 4.1 g/dL (3.4-5.0); Alkaline Phosphatase 81 U/L (45-117); BUN Blood Urea Nitrogen 16 mg/dL (7-18); Bicarbonate 25 mmol/L (21-32); Bilirubin Direct 0.2 mg/dL (0-0.2); Bilirubin Total 0.5 mg/dL (0.2-1.0); Glucose Level 90 mg/dL (74-106); Magnesium 2.1 mg/dL (1.8-2.4); Protein, Total 8.2 g/dL (6.4-8.2); Sodium Level 139 mmol/L (136-145)
[2021-04-15] MEDS ORDERED: NA CHLORIDE 0.9% 1,000 ML ONE (10:20)
[2021-04-15] MEDS ORDERED: BENZTROPINE 2 MG/2 ML VIAL ONE (10:20)
--- NOTE | 2021-04-15 11:07 | EDPHYS ---
Physician Documentation [facility] Name: Selin Aguilar Age: 21 yrs Sex: Male : 2000 Arrival Date: 04/15/2021 Time: 07:58 Bed Treatment Private MD: ED Physician Kenneth Moran HPI: 04/15 10:30 This 21 yrs old Male presents to ER via Ambulatory with complaints of jr8 Restlessnes. 10:30 Patient stated that his pcp increased his geodon dose from 80 mg to 100 mg last week. jr8 After doing so has been having restlessness of the lower extremities and feels that he cannot stop moving his lower legs and has been having insomnia . Severity of symptoms: At their worst the symptoms were moderate in the emergency department the symptoms are unchanged. The patient has not experienced similar symptoms in the past. The patient has not recently seen a physician. Historical: - Allergies: 08:08 No Known Allergies; jd3 - Home Meds: 08:08 ziprasidone HCl 40 mg oral cap [Active]; Adderall XR Oral [Active]; Buspirone Oral jd3 [Active]; Zinc Sulfate Oral [Active]; Valium Oral [Active]; Fish Oil oral oral [Active]; biotin oral oral [Active]; - PMHx: 08:08 adhd; Anxiety; Asthma; jd3 - PSHx: 08:08 None; jd3 - Immunization history:: Adult Immunizations up to date. - Social history:: Smoking status: Reported history of juuling and/or vaping. ROS: 11:03 Eyes: Negative for injury, pain, redness, and discharge, ENT: Negative for injury, jr8 pain, and discharge, Neck: Negative for injury, pain, and swelling, Cardiovascular: Negative for chest pain, palpitations, and edema, Respiratory: Negative for shortness of breath, cough, wheezing, and pleuritic chest pain, Abdomen/GI: Negative for abdominal pain, nausea, vomiting, diarrhea, and constipation, Back: Negative for injury and pain, MS/Extremity: Negative for injury and deformity, Skin: Negative for injury, rash, and discoloration. 11:03 Neuro: Positive for abnormal movements. Exam: 11:03 Constitutional: This is a well developed, well nourished patient who is awake, alert, jr8 and in no acute distress. ENT: Nares patent. No nasal discharge, no septal abnormalities noted. Tympanic membranes are normal and external auditory canals are clear. Oropharynx with no redness, swelling, or masses, exudates, or evidence of obstruction, uvula midline. Mucous membranes moist. Neck: Trachea midline, no thyromegaly or masses palpated, and no cervical lymphadenopathy. Supple, full range of motion without nuchal rigidity, or vertebral point tenderness. No Meningismus. Cardiovascular: Regular rate and rhythm with a normal S1 and S2. No gallops, murmurs, or rubs. Normal PMI, no JVD. No pulse deficits. Respiratory: Lungs have equal breath sounds bilaterally, clear to auscultation and percussion. No rales, rhonchi or wheezes noted. No increased work of breathing, no retractions or nasal flaring. Abdomen/GI: Soft, non-tender, with normal bowel sounds. No distension or tympany. No guarding or rebound. No evidence of tenderness throughout. Back: No spinal tenderness. No costovertebral tenderness. Full range of motion. Skin: Warm, dry with normal turgor. Normal color with no rashes, no lesions, and no evidence of cellulitis. MS/ Extremity: Pulses equal, no cyanosis. Neurovascular intact. Full, normal range of motion. Neuro: Awake and alert, GCS 15, oriented to person, place, time, and situation. Cranial nerves II-XII grossly intact. Motor strength 5/5 in all extremities. Sensory grossly intact. Cerebellar exam normal. Normal gait. Patient has restlessness of lower extremities. No asthenia or hypersthenia. No asterixis Psych: Awake, alert, with orientation to person, place and time. Behavior, mood, and affect are within normal limits. Vital Signs: 08:08 BP 144 / 51; Pulse 87; Resp 17 S; Temp 97.5(TE); Pulse Ox 100% on R/A; Weight 131.54 kg jd3 (R); Height 6 ft. 4 in. (193.04 cm) (R); Pain 1/10; 10:13 BP 123 / 68; Pulse 76; Resp 16; Pulse Ox 100% on R/A; vg1 11:17 BP 119 / 67; Pulse 70; Resp 16; Pulse Ox 100% on R/A; vg1 08:08 Body Mass Index 35.30 (131.54 kg, 193.04 cm) jd3 MDM: 08:56 Patient medically screened. 11:05 Data reviewed: vital signs, nurses notes, lab test result(s), and as a result, I will jr8 discharge patient. Data interpreted: Pulse oximetry: on room air is 100 %. Interpretation: normal. Counseling: I had a detailed discussion with the patient and/or guardian regarding: the historical points, exam findings, and any diagnostic results supporting the discharge/admit diagnosis, lab results, the need for outpatient follow up, a psychiatrist, to return to the emergency department if symptoms worsen or persist or if there are any questions or concerns that arise at home. ED course: Discussed with patient to hold daytime dose now and to start back on just 40 mg tonight and then go back to 40mg BID. At no point should he stop abruptly and to f/u with psych. If worse to come back . 04/15 09:26 Order name: CBC with Diff; Complete Time: 10:07 04/15 09:26 Order name: Basic Metabolic Panel; Complete Time: 10:29 04/15 09:26 Order name: LFT's; Complete Time: 10:29 04/15 09:26 Order name: Magnesium; Complete Time: 10:29 04/15 09:26 Order name: IV; Complete Time: 09:58 04/15 09:26 Order name: Vital Signs; Complete Time: 09:58 Administered Medications: 09:44 Not Given (Physician Discretion): Ativan (LORazepam) 1 mg IVP once 10:07 Drug: NS 0.9% 1000 ml Route: IV; Rate: 1000 ml; Site: right antecubital; vg1 11:32 Follow up: IV Status: Completed infusion; IV Intake: 500ml vg1 10:08 Drug: COgentin (benztropine) 1 mg Route: IVP; Site: right antecubital; vg1 11:18 Follow up: Response: No adverse reaction vg1 Disposition: 18:51 Co-signature as Attending Physician, Kenneth Moran MD I agree with the assessment and kdr plan of care. Disposition: 04/15/21 11:07 Discharged to Home. Impression: Drug induced akathisia. - Condition is Stable. - Discharge Instructions: Dystonia. - Medication Reconciliation Form, Thank You Letter, Antibiotic Education, Prescription Opioid Use form. - Follow up: Private Physician; When: 1 - 2 days; Reason: Recheck today's complaints, Continuance of care, Re-evaluation by your physician. - Problem is new. - Symptoms have improved. Signatures: Dispatcher [employer] EDMS Kenneth Moran MD MD kdr Roszak, Josh, PA PA jr8 Ruben Quintana RN RN jd3 Susanne Flowers RN RN vg1 Corrections: (The following items were deleted from the chart) 11:04 11:02 Eyes: Negative for injury, pain, redness, and discharge, ENT: Negative for jr8 injury, pain, and discharge, Neck: Negative for injury, pain, and swelling, Cardiovascular: Negative for chest pain, palpitations, and edema, Respiratory: Negative for shortness of breath, cough, wheezing, and pleuritic chest pain, MS/Extremity: Negative for injury and deformity, Skin: Negative for injury, rash, and discoloration, Neuro: Negative for headache, weakness, numbness, tingling, and seizure, jr8 11:04 11:02 Abdomen/GI: Positive for abdominal pain, nausea, vomiting, 8 8 11:04 11:02 Back: Positive for flank pain, on the left, jr8 8 11:05 11:02 Constitutional: This is a well developed, well nourished patient who is awake, jr8 alert, and in no acute distress. ENT: Nares patent. No nasal discharge, no septal abnormalities noted. Tympanic membranes are normal and external auditory canals are clear. Oropharynx with no redness, swelling, or masses, exudates, or evidence of obstruction, uvula midline. Mucous membranes moist. Cardiovascular: Regular rate and rhythm with a normal S1 and S2. No gallops, murmurs, or rubs. Normal PMI, no JVD. No pulse deficits. Respiratory: Lungs have equal breath sounds bilaterally, clear to auscultation and percussion. No rales, rhonchi or wheezes noted. No increased work of breathing, no retractions or nasal flaring. Abdomen/GI: Soft, non-tender, with normal bowel sounds. No distension or tympany. No guarding or rebound. No evidence of tenderness throughout. Back: No spinal tenderness. No costovertebral tenderness. Full range of motion. Skin: Warm, dry with normal turgor. Normal color with no rashes, no lesions, and no evidence of cellulitis. MS/ Extremity: Pulses equal, no cyanosis. Neurovascular intact. Full, normal range of motion. Neuro: Awake and alert, GCS 15, oriented to person, place, time, and situation. Cranial nerves II-XII grossly intact. Motor strength 5/5 in all extremities. Sensory grossly intact. jr8 11:32 11:07 04/15/2021 11:07 Discharged to Home. Impression: Drug induced akathisia. vg1 Condition is Stable. Forms are Medication Reconciliation Form, Thank You Letter, Antibiotic Education, Prescription Opioid Use. Follow up: Private Physician; When: 1 - 2 days; Reason: Recheck today's complaints, Continuance of care, Re-evaluation by your physician. Problem is new. Symptoms have improved. jr8
--- NOTE | 2021-04-15 11:07 | ER ---
Nurse's Notes [facility] Name: Selin Aguilar Age: 21 yrs Sex: Male : 2000 Arrival Date: 04/15/2021 Time: 07:58 Bed Treatment Private MD: Diagnosis: Drug induced akathisia Presentation: 04/15 08:03 Chief complaint: Patient states: "The past 3-4 days I have had this feeling in my feet jd3 that feels like vibrations, but today I woke up with this pressure in my spine that goes down to my feet. I am unable to sit still and unable to fall asleep. Like i have to keep pacing.". Coronavirus screen: At this time, the client does not indicate any symptoms associated with coronavirus-19. Ebola Screen: Patient negative for fever greater than or equal to 101.5 degrees Fahrenheit, and additional compatible Ebola Virus Disease symptoms. Initial Sepsis Screen: Does the patient meet any 2 criteria? No. Patient's initial sepsis screen is negative. Does the patient have a suspected source of infection? No. Patient's initial sepsis screen is negative. Risk Assessment: Do you want to hurt yourself or someone else? Patient reports no desire to harm self or others. Onset of symptoms was April 12, 2021. 08:03 Method Of Arrival: Ambulatory jd3 08:03 Acuity: NEETA 3 jd3 08:08 Note has no ride home/ pt reports he does not want anything that would impair him from jd3 driving home. Triage Assessment: 10:14 General: Appears in no apparent distress. comfortable, Behavior is calm, cooperative. vg1 Pain: Denies pain. EENT: No signs and/or symptoms were reported regarding the EENT system. Neuro: Level of Consciousness is awake, alert, obeys commands, Oriented to person, place, time, situation, Elementary Assistant Principal are equal bilaterally. Cardiovascular: Capillary refill < 3 seconds in bilateral fingers. Respiratory: Airway is patent Respiratory effort is even, unlabored. GI: No signs and/or symptoms were reported involving the gastrointestinal system. : No signs and/or symptoms were reported regarding the genitourinary system. Derm: Skin is intact, is healthy with good turgor. Musculoskeletal: Circulation, motion, and sensation intact. Historical: - Allergies: 08:08 No Known Allergies; jd3 - Home Meds: 08:08 ziprasidone HCl 40 mg oral cap [Active]; Adderall XR Oral [Active]; Buspirone Oral jd3 [Active]; Zinc Sulfate Oral [Active]; Valium Oral [Active]; Fish Oil oral oral [Active]; biotin oral oral [Active]; - PMHx: 08:08 adhd; Anxiety; Asthma; jd3 - PSHx: 08:08 None; jd3 - Immunization history:: Adult Immunizations up to date. - Social history:: Smoking status: Reported history of juuling and/or vaping. Screenin:13 Abuse screen: Denies threats or abuse. Nutritional screening: No deficits noted. vg1 Tuberculosis screening: No symptoms or risk factors identified. Fall Risk No fall in past 12 months (0 pts). No secondary diagnosis (0 pts). IV access (20 points). Ambulatory Aid- None/Bed Rest/Nurse Assist (0 pts). Gait- Normal/Bed Rest/Wheelchair (0 pts) Mental Status- Oriented to own ability (0 pts). Total Patel Fall Scale indicates No Risk (0-24 pts). Assessment: 10:15 Reassessment: see triage. vg1 11:01 Reassessment: Patient appears in no apparent distress at this time. No changes from vg1 previously documented assessment. Patient and/or family updated on plan of care and expected duration. Pain level reassessed. Patient is alert, oriented x 3, equal unlabored respirations, skin warm/dry/pink. Vital Signs: 08:08 BP 144 / 51; Pulse 87; Resp 17 S; Temp 97.5(TE); Pulse Ox 100% on R/A; Weight 131.54 kg jd3 (R); Height 6 ft. 4 in. (193.04 cm) (R); Pain 1/10; 10:13 BP 123 / 68; Pulse 76; Resp 16; Pulse Ox 100% on R/A; vg1 11:17 BP 119 / 67; Pulse 70; Resp 16; Pulse Ox 100% on R/A; vg1 08:08 Body Mass Index 35.30 (131.54 kg, 193.04 cm) jd3 ED Course: 07:58 Patient arrived in ED. mr 08:05 Triage completed. jd3 08:09 Arm band placed on. jd3 08:56 Roszak, Marin, PA is PHCP. jr8 08:56 Kenneth Moran MD is Attending Physician. jr8 09:27 Jeanne Brunson RN is Primary Nurse. ss 10:12 Primary Nurse role handed off by Jeanne Brunson, ENZO vg1 10:12 Susanne Flowers RN is Primary Nurse. vg1 10:16 Patient has correct armband on for positive identification. Call light in reach. vg1 10:27 Inserted saline lock: 22 gauge in right antecubital area, using aseptic technique. ss Blood collected. Patient maintains SpO2 saturation greater than 95% on room air. 11:31 No provider procedures requiring assistance completed. IV discontinued, intact, vg1 bleeding controlled, No redness/swelling at site. Pressure dressing applied. Administered Medications: 09:44 Not Given (Physician Discretion): Ativan (LORazepam) 1 mg IVP once jr8 10:07 Drug: NS 0.9% 1000 ml Route: IV; Rate: 1000 ml; Site: right antecubital; vg1 11:32 Follow up: IV Status: Completed infusion; IV Intake: 500ml vg1 10:08 Drug: COgentin (benztropine) 1 mg Route: IVP; Site: right antecubital; vg1 11:18 Follow up: Response: No adverse reaction vg1 Intake: 11:32 IV: 500ml; Total: 500ml. vg1 Outcome: 11:07 Discharge ordered by . jr8 11:31 Discharged to home ambulatory. vg1 11:31 Condition: stable 11:31 Discharge instructions given to patient, Instructed on discharge instructions, follow up and referral plans. medication usage, Demonstrated understanding of instructions, follow-up care. 11:32 Patient left the ED. vg1 Signatures: Padmini Smith Jeanne Brunson RN RN Marin Mott PA PA jr8 Ruben Quintana RN RN jd3 Garcia, Victoria, RN RN vg1
[2021-04-15 11:39] VITALS: TEMP 97.5; O2SAT 100
[2021-04-15 11:42] VITALS: BP 119/67
== END 2021-04-15 11:32 | disposition home or self-care (01) ==
LOC: ER 07:52
DX: G25.71 Drug induced akathisia (principal); F41.9 Anxiety disorder, unspecified; J45.909 Unspecified asthma, uncomplicated; F17.290 Nicotine dependence, other tobacco product, uncomplicated
CPT/HCPCS: 96361; 85025; 80048; 36415; 83735; 80076; 96374; 99284; J0515; J7030

== ENCOUNTER 2024-12-15 01:17 | Emergency (ER) | payer BC, OTHER ==
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
[2024-12-15] MEDS ORDERED: ONDANSETRON 4 MG/2 ML VIAL ONE (01:53)
[2024-12-15] MEDS ORDERED: FAMOTIDINE 20 MG/2 ML VIAL IV ONE (01:54)
[2024-12-15] MEDS ORDERED: BUPIVACAINE 0.5% PF 10 ML VIAL ONE (01:54)
[2024-12-15] MEDS ORDERED: KETOROLAC 30 MG/ML INJ ONE (01:54)
[2024-12-15] MEDS ORDERED: MORPHINE 4 MG/ML SYR ONE (01:54)
[2024-12-15] MEDS ORDERED: NA CHLORIDE 0.9% 3,000 ML ONE (01:55)
[2024-12-15] MEDS ORDERED: CLINDAMYCIN 900MG/D5W 900 MG/50 ML IVPB IV ONE (01:55)
[2024-12-15 02:31] LABS: Absolute Basophils 0.1 K/uL (0-0.5); Absolute Lymphocytes (CBC) 1.5 K/uL (0.7-4.9); Absolute Monocytes 1.2 K/uL (0.1-1.3); Absolute Neutrophil 7.4 K/uL (1.8-8.0); Basophils % 0.5 % (0-1.3); Eosinophils % 0.2 % (0-4.4); Hematocrit 44.2 % (39.6-49.0); Hemoglobin 15.3 g/dL (13.6-17.9); Lymphocytes % 14.8 % (15.3-44.8); MCH 28.9 pg (27.0-35.0); MCHC 34.6 g/dL (32.0-36.0); MCV 83.4 fL (80-100); MPV 7.8 fL (7.6-11.3); Monocytes % 12.2 % (3.3-12.3); Neutrophils % 72.3 % (41.7-73.7); Nucleated Red Blood Cells % 0.1 % (0-0); Platelets 287 thou/uL (152-406); Red Cell Distribution Width 13.9 % (12.1-15.2)
[2024-12-15 02:35] LABS: PT Prothrombin Time 14.5 SECONDS (9.4-12.5); Protime INR 1.39
[2024-12-15 02:52] LABS: Albumin 3.7 g/dL (3.4-5.0); Albumin/Globulin Ratio 0.8 (1.1-1.8); Anion Gap 12.4 mEq/L (5.0-15.0); Bilirubin Total 0.7 mg/dL (0.2-1.0); Globulin 4.7 g/dL (2.3-3.5); Potassium 3.4 mEq/L (3.5-5.1); Protein, Total 8.4 g/dL (6.4-8.2)
[2024-12-15] MEDS ORDERED: dexAMETHasone 10 MG/ML VIAL ONE (03:44)
[2024-12-15] MEDS ORDERED: FLUCONAZOLE 100 MG TAB ONE (03:44)
[2024-12-15] MEDS ORDERED: IBUPROFEN 400 MG TAB ONE (03:44)
[2024-12-15] MEDS ORDERED: HYDROCODONE/APAP 10/325 TAB ONE (03:45)
--- NOTE | 2024-12-15 04:16 | RAD REPORT ---
EXAM DESCRIPTION: Soft Tissue Neck W/Contr CLINICAL HISTORY: 24 years Male, FACIAL PAIN COMPARISON: None. TECHNIQUE: Multiple, helical axial tomographic images were obtained of the neck following administr ation of intravenous contrast. Coronal and sagittal reformatted images were obtained. This exam was performed according to our departmental dose-optimization program, which includes automated exposure control, adjustment of the mA and/or kV according to patient size and/or use of iterative reconstruction technique. FINDINGS: [place] tonsils appear mildly enlarged. No evidence of abscess. Epiglottis is normal. Retropharyngea l soft tissues appear unremarkable. Larynx and vocal folds appear unremarkable. Thyroid gland appears normal. Salivary glands appear normal. Major vasculature appears intact. Visualized lungs are clear. Visualized orbits appear unremarkable. Paranasal sinuses are clear. Mastoid air cells and middle ear spaces are clear. Osseous structures are unremarkable. IMPRESSION: No acute findings. Electronically signed by: Dakotah Chung MD 12/15/2024 04:12 AM [facility] Due to temporary technical issues with the PACS/Cloudant reporting system, reports are being jennifer d by the in-house radiologist without review as a courtesy to ensure prompt reporting the interpreting radiologist is fully responsible for the content of the report. Transcribed Date/Time: 12/15/2024 4:16 AM
--- NOTE | 2024-12-15 05:55 | EDPHYS ---
Physician Documentation [facility] Name: Selin Aguilar Age: 24 yrs Sex: Male : 2000 Arrival Date: 12/15/2024 Time: 01:17 Bed 2 Private MD: ED Physician Tom Diaz HPI: 12/15 01:25 This 24 yrs old Male presents to ER via Unassigned with complaints of Fever, sp4 Jaw Pain, ULCERS IN MOUTH, Toothache. 05:59 24-year-old male presents with moderate to severe mouth pain particularly on the right sp4 side starting 2 days ago. Patient states she has moderate to severe oral source associated with sensitivity and pain.. Historical: - Allergies: 01:36 No Known Allergies; ss - PMHx: 01:36 adhd; Anxiety; Asthma; ss - Immunization history:: Adult Immunizations up to date. - Infectious Disease History:: Denies. - Family history:: not pertinent. - Social history:: Smoking status: Patient denies any tobacco usage or history of. ROS: 05:59 Constitutional: Negative for fever, chills, and weight loss, positive for oral sp4 sores, positive for oral pain, positive for right upper dental pain 05:59 All other systems are negative, Exam: 05:59 Constitutional: This is a well developed, well nourished patient who is awake, alert, sp4 and in no acute distress. Head/Face: Normocephalic, atraumatic. Eyes: Pupils equal round and reactive to light, extra-ocular motions intact. Lids and lashes normal. Conjunctiva and sclera are not injected. Cornea within normal limits. Periorbital areas with no swelling, redness, or edema. ENT: Nares patent. No nasal discharge, no septal abnormalities noted. Tympanic membranes are normal and external auditory canals are clear. Oropharynx -moderate to severe gingivitis diffusely, associated with gingival inflammation redness tenderness sensitivity, moderate to severe chronic appearing diffuse periodontal disease, no sign of drainable abscess. Neck: Trachea midline, no thyromegaly or masses palpated, and no cervical lymphadenopathy. Supple, full range of motion without nuchal rigidity, or vertebral point tenderness. Chest/axilla: Normal chest wall appearance and motion. Nontender with no deformity. No lesions are appreciated. Cardiovascular: Regular rate and rhythm with a normal S1 and S2. No gallops, murmurs, or rubs. Normal PMI, no JVD. No pulse deficits. Respiratory: Lungs have equal breath sounds bilaterally, clear to auscultation and percussion. No rales, rhonchi or wheezes noted. No increased work of breathing, no retractions or nasal flaring. Abdomen/GI: Soft, with normal bowel sounds. No distension or tympany. No guarding or rebound. No evidence of tenderness throughout. Back: No spinal tenderness. No costovertebral tenderness. Skin: Warm, dry with normal turgor. Normal color with no rashes, no lesions, and no evidence of cellulitis. MS/ Extremity: Pulses equal, no cyanosis. Neurovascular intact. Full, normal range of motion. Neuro: Awake and alert, GCS 15, oriented to person, place, time, and situation. Cranial nerves II-XII grossly intact. Motor strength 5/5 in all extremities. Sensory grossly intact. Psych: Awake, alert, with orientation to person, place and time. Behavior, mood, and affect are within normal limits Vital Signs: 01:34 BP 128 / 77; Pulse 155; Resp 18; Temp 99; Pulse Ox 99% on R/A; Height 6 ft. 2 in. ; ss 02:19 BP 137 / 79; Pulse 102 RA; Resp 17; Pulse Ox 96% ; dd2 [place] Coma Score: 02:20 Eye Response: spontaneous(4). Motor Response: obeys commands(6). Verbal Response: dd2 oriented(5). Total: 15. 05:59 Eye Response: spontaneous(4). Motor Response: obeys commands(6). Verbal Response: sp4 oriented(5). Total: 15. MDM: 01:26 Medical Screening Exam initiated sp4 05:47 ED course: EXAM DESCRIPTION: Soft Tissue Neck W/Contr CLINICAL HISTORY: 24 years Male, sp4 FACIAL PAIN COMPARISON: None. TECHNIQUE: Multiple, helical axial tomographic images were obtained of the neck following administration of intravenous contrast. Coronal and sagittal reformatted images were obtained. This exam was performed according to our departmental doseoptimization program, which includes automated exposure control, adjustment of the mA and/or kV according to patient size and/or use of iterative reconstruction technique. FINDINGS: [place] tonsils appear mildly enlarged. No evidence of abscess. Epiglottis is normal. Retropharyngeal soft tissues appear unremarkable. Larynx and vocal folds appear unremarkable. Thyroid gland appears normal. Salivary glands appear normal. Major vasculature appears intact. Visualized lungs are clear. Visualized orbits appear unremarkable. Paranasal sinuses are clear. Mastoid air cells and middle ear spaces are clear. Osseous structures are unremarkable. IMPRESSION: No acute findings. Electronically signed by: Dakotah Chung MD 12/15/2024 04:12 AM. 06:03 Differential diagnosis: viral Infection, bacterial infection, bronchitis, pneumonia. sp4 Data reviewed: vital signs, nurses notes, old medical records, lab test result(s), radiologic studies, CT scan. Consideration of Admission/Observation Escalation of care including admission/observation considered. ED course: Patient advised to practice diligent dental hygiene with rinsing after every meal with Waterpik, extensive brushing with sonicare toothbrush also visit with oral surgeon for extraction of wisdom teeth. ED course: Will provide clindamycin for the next 10 days and will advise to discontinue inks in case of diarrheal illness. 12/15 01:33 Order name: CBC with Diff; Complete Time: 05:47 sp4 12/15 01:33 Order name: CMP; Complete Time: 05:47 sp4 12/15 01:33 Order name: Lipase; Complete Time: 05:47 sp4 12/15 01:35 Order name: Blood Culture Adult (2) sp4 12/15 01:35 Order name: Lactate w/ 2H reflex if indic.; Complete Time: 05:47 sp4 12/15 01:35 Order name: PT-INR; Complete Time: 05:47 sp4 12/15 01:35 Order name: Type And Screen; Complete Time: 05:47 sp4 12/15 01:34 Order name: CT Soft Tissue Neck W/contr sp4 12/15 01:33 Order name: IV Saline Lock; Complete Time: 02:07 sp4 12/15 01:33 Order name: Labs collected and sent; Complete Time: 02:08 sp4 Administered Medications: 02:17 Drug: Clindamycin IVPB 900 mg IVPB once over 30 mins; (mix in 50 mL) Route: IVPB; dd2 Infused Over: 30 mins; Site: right antecubital; 02:47 Follow up: Response: No adverse reaction; IV Status: Completed infusion; IV Intake: [id number] 02:17 Drug: NS 0.9% IV 1000 ml IV at 1 bolus Per protocol; to be given as a bolus over 60 dd2 minutes Route: IV; Rate: 1 bolus; Site: right antecubital; 03:35 Follow up: IV Status: Completed infusion; IV Intake: 1000ml dd2 02:17 Drug: NS 0.9% IV 1000 ml IV at 1 bolus Per protocol; to be given as a bolus over 60 dd2 minutes Route: IV; Rate: 1 bolus; Site: right antecubital; 03:17 Follow up: IV Status: Completed infusion; IV Intake: 1000ml dd2 02:18 Drug: Ondansetron IVP 8 mg IVP once; over 2 minutes Route: IVP; Site: right antecubital;dd2 02:33 Follow up: Response: No adverse reaction dd2 02:18 Drug: Famotidine IVP 20 mg IVP once; dilute with 10 mL 0.9% NaCl; give over 2 minutes dd2 Route: IVP; Site: right antecubital; 02:33 Follow up: Response: No adverse reaction dd2 02:18 Drug: TORadol - Ketorolac IVP 30 mg IVP once Route: IVP; Site: right antecubital; dd2 02:33 Follow up: Response: No adverse reaction dd2 02:18 Drug: NS 0.9% IV 1000 ml IV at 1 bolus Per protocol; to be given as a bolus over 60 dd2 minutes Route: IV; Rate: 1 bolus; Site: right antecubital; 03:50 Follow up: Response: No adverse reaction; IV Status: Completed infusion; IV Intake: dd2 1000ml 02:19 Drug: morphine IVP or IV 8 mg IVP once over 4 mins Route: IVP; Infused Over: 4 mins; dd2 Site: right antecubital; 02:34 Follow up: Response: No adverse reaction dd2 03:48 Drug: Dexamethasone IVP 10 mg IVP once; (not to exceed 40 mg) Route: IVP; Site: right dd2 antecubital; 04:03 Follow up: Response: No adverse reaction dd2 03:48 CANCELLED (medication not availablee): hydrocodone-acetaminophen5 mg-325 mg 2 tabs PO dd2 once 03:48 Drug: Ibuprofen PO 800 mg PO once Route: PO; dd2 04:18 Follow up: Response: No adverse reaction dd2 03:48 Drug: Fluconazole PO 200 mg PO once Route: PO; dd2 04:18 Follow up: Response: No adverse reaction dd2 03:48 Drug: HYDROcodone-acetaminophen PO 10 mg-325 mg 1 tabs PO once Route: PO; dd2 04:18 Follow up: Response: No adverse reaction dd2 05:53 Not Given (Physician Discretion): bupivacaine(0.5 %) 10 ml 10 ml Infiltration once dd2 Disposition Summary: 12/15/24 05:53 Discharge Ordered Notes: Rinse generously with Water Pick after every meal Location: Home sp4 Problem: new sp4 Symptoms: have improved sp4 Condition: Stable sp4 Diagnosis - Acute gingivitis sp4 - Acute gingivostomatitis, Acute Dental Pain with Periodontal disease sp4 Followup: sp4 - With: Roland Ford DDS - When: 7 - 10 days - Reason: Recheck today's complaints Discharge Instructions: - Discharge Summary Sheet sp4 - Gingivitis, [id number] sp4 Forms: - Patient Portal Instructions sp4 Prescriptions: - acetaminophen-codeine 300-60 mg Oral tablet - take 1 tablet ORAL route every 8 hours as needed for pain; 20 tablet; Refills: sp4 0, Product Selection Permitted - Clindamycin HCl 300 mg Oral Capsule - take 1 capsule ORAL route every 6 hours for 10 days; 40 capsule; Refills: 0, sp4 Product Selection Permitted - Ibuprofen 800 mg Oral Tablet - take 1 tablet ORAL route every 8 hours As needed take with food; 30 tablet; sp4 Refills: 0, Product Selection Permitted - Fluconazole 200 mg Oral tablet - take 1 tablet ORAL route once daily for 10 days; 10 tablet; Refills: 0, Product sp4 Selection Permitted Signatures: Dispatcher [employer] Jeanne Layne RN RN Tom High MD MD sp4 Paco Isaac RN RN bm8 HAZEL WASHBURN RN RN dd2 Corrections: (The following items were deleted from the chart) 03:48 03:32 HYDROcodone-acetaminophen PO 5 mg-325 mg 2 tabs PO once ordered. sp4 dd2
--- NOTE | 2024-12-15 05:55 | ER ---
Nurse's Notes [facility] Name: Selin Aguilar Age: 24 yrs Sex: Male : 2000 Arrival Date: 12/15/2024 Time: 01:17 Bed 2 Private MD: Diagnosis: Acute gingivitis;Acute gingivostomatitis, Acute Dental Pain with Periodontal disease Presentation: 12/15 01:34 Chief complaint: Patient states: Dental pain, fever and sores in mouth x 2 days. ss Coronavirus screen: Client denies travel out of the [place] in the last 14 days. Ebola Screen: Patient denies exposure to infectious person. Patient denies travel to an Ebola-affected area in the 21 days before illness onset. Initial Sepsis Screen: Does the patient meet any 2 criteria? No. Patient's initial sepsis screen is negative. Does the patient have a suspected source of infection? No. Patient's initial sepsis screen is negative. Risk Assessment: Do you want to hurt yourself or someone else? Patient reports no desire to harm self or others. Onset of symptoms was December 13, 2024. 01:34 Method Of Arrival: Ambulatory 01:34 Acuity: NEETA 2 ss Historical: - Allergies: 01:36 No Known Allergies; ss - PMHx: 01:36 adhd; Anxiety; Asthma; ss - Immunization history:: Adult Immunizations up to date. - Infectious Disease History:: Denies. - Family history:: not pertinent. - Social history:: Smoking status: Patient denies any tobacco usage or history of. Screenin:20 [facility] ED Fall Risk Assessment (Adult) History of falling in the last 3 months, dd2 including since admission No falls in past 3 months (0 pts) Confusion or Disorientation No (0 pts) Intoxicated or Sedated No (0 pts) Impaired Gait No (0 pts) Mobility Assist Device Used No (0 pt) Altered Elimination No (0 pt) Score/Fall Risk Level 0 - 2 = Low Risk Oriented to surroundings, Maintained a safe environment, Educated pt \T\ family on fall prevention, incl call for assistance when getting out of bed, Assessed \T\ reinforced patient's understanding of fall precautions, Hourly rounding (assess needs \T\ fall precautionary measures) done. Abuse screen: Denies threats or abuse. Nutritional screening: No deficits noted. Tuberculosis screening: No symptoms or risk factors identified. Assessment: 02:05 General: Appears in no apparent distress. uncomfortable, Behavior is cooperative, dd2 appropriate for age, anxious. Pain: Complains of pain in mouth, throat Pain does not radiate. Pain currently is 10 out of 10 on a pain scale. Neuro: No deficits noted. Solomon Agitation-Sedation Scale (RASS): 0 - Alert and Calm. Cardiovascular: No deficits noted. Patient's skin is warm and dry. Respiratory: No deficits noted. Airway is patent Respiratory effort is even, unlabored, Respiratory pattern is regular, symmetrical. GI: No deficits noted. No signs and/or symptoms were reported involving the gastrointestinal system. Abdomen is non-distended, obese. : No deficits noted. No signs and/or symptoms were reported regarding the genitourinary system. EENT: Throat is reddened ulcers present. Reports difficulty swallowing jaw and tooth pain. Derm: No deficits noted. No signs and/or symptoms reported regarding the dermatologic system. Musculoskeletal: No deficits noted. No signs and/or symptoms reported regarding the musculoskeletal system. Circulation, motion, and sensation intact. Range of motion: intact in all extremities. Vital Signs: 01:34 BP 128 / 77; Pulse 155; Resp 18; Temp 99; Pulse Ox 99% on R/A; Height 6 ft. 2 in. ; ss 02:19 BP 137 / 79; Pulse 102 RA; Resp 17; Pulse Ox 96% ; dd2 [place] Coma Score: 02:20 Eye Response: spontaneous(4). Motor Response: obeys commands(6). Verbal Response: dd2 oriented(5). Total: 15. 05:59 Eye Response: spontaneous(4). Motor Response: obeys commands(6). Verbal Response: sp4 oriented(5). Total: 15. ED Course: 01:20 Patient arrived in ED. gm2 01:25 Tom Diaz MD is Attending Physician. sp4 01:36 Triage completed. ss 01:36 Arm band placed on right wrist. ss 01:38 HAZEL WASHBURN, ENZO is Primary Nurse. dd2 01:48 First set of blood cultures drawn by me. oe 02:07 Inserted saline lock: 20 gauge in right antecubital area, using aseptic technique. oe Blood collected. Flushed with 10 mL NS. 02:07 Type And Screen Sent. oe 02:07 PT-INR Sent. oe 02:07 Lactate w/ 2H reflex if indic. Sent. oe 02:08 CBC with Diff Sent. oe 02:08 CMP Sent. oe 02:08 Lipase Sent. oe 02:09 Second set of blood cultures drawn by me. oe 02:20 Patient has correct armband on for positive identification. Bed in low position. Call dd2 light in reach. Side rails up X2. Client placed on continuous cardiac and pulse oximetry monitoring. NIBP monitoring applied. Door closed. Noise minimized. Pillow given. Verbal reassurance given. 02:20 Patient maintains SpO2 saturation greater than 95% on room air. dd2 03:23 CT Soft Tissue Neck W/contr In Process Unspecified. EDMS 05:52 Roland Ford DDS is Referral Physician. sp4 06:06 No provider procedures requiring assistance completed. IV discontinued, intact, ss bleeding controlled, No redness/swelling at site. Pressure dressing applied. Administered Medications: 02:17 Drug: Clindamycin IVPB 900 mg IVPB once over 30 mins; (mix in 50 mL) Route: IVPB; dd2 Infused Over: 30 mins; Site: right antecubital; 02:47 Follow up: Response: No adverse reaction; IV Status: Completed infusion; IV Intake: [id number] 02:17 Drug: NS 0.9% IV 1000 ml IV at 1 bolus Per protocol; to be given as a bolus over 60 dd2 minutes Route: IV; Rate: 1 bolus; Site: right antecubital; 03:35 Follow up: IV Status: Completed infusion; IV Intake: 1000ml dd2 02:17 Drug: NS 0.9% IV 1000 ml IV at 1 bolus Per protocol; to be given as a bolus over 60 dd2 minutes Route: IV; Rate: 1 bolus; Site: right antecubital; 03:17 Follow up: IV Status: Completed infusion; IV Intake: 1000ml dd2 02:18 Drug: Ondansetron IVP 8 mg IVP once; over 2 minutes Route: IVP; Site: right antecubital;dd2 02:33 Follow up: Response: No adverse reaction dd2 02:18 Drug: Famotidine IVP 20 mg IVP once; dilute with 10 mL 0.9% NaCl; give over 2 minutes dd2 Route: IVP; Site: right antecubital; 02:33 Follow up: Response: No adverse reaction dd2 02:18 Drug: TORadol - Ketorolac IVP 30 mg IVP once Route: IVP; Site: right antecubital; dd2 02:33 Follow up: Response: No adverse reaction dd2 02:18 Drug: NS 0.9% IV 1000 ml IV at 1 bolus Per protocol; to be given as a bolus over 60 dd2 minutes Route: IV; Rate: 1 bolus; Site: right antecubital; 03:50 Follow up: Response: No adverse reaction; IV Status: Completed infusion; IV Intake: dd2 1000ml 02:19 Drug: morphine IVP or IV 8 mg IVP once over 4 mins Route: IVP; Infused Over: 4 mins; dd2 Site: right antecubital; 02:34 Follow up: Response: No adverse reaction dd2 03:48 Drug: Dexamethasone IVP 10 mg IVP once; (not to exceed 40 mg) Route: IVP; Site: right dd2 antecubital; 04:03 Follow up: Response: No adverse reaction dd2 03:48 CANCELLED (medication not availablee): hydrocodone-acetaminophen5 mg-325 mg 2 tabs PO dd2 once 03:48 Drug: Ibuprofen PO 800 mg PO once Route: PO; dd2 04:18 Follow up: Response: No adverse reaction dd2 03:48 Drug: Fluconazole PO 200 mg PO once Route: PO; dd2 04:18 Follow up: Response: No adverse reaction dd2 03:48 Drug: HYDROcodone-acetaminophen PO 10 mg-325 mg 1 tabs PO once Route: PO; dd2 04:18 Follow up: Response: No adverse reaction dd2 05:53 Not Given (Physician Discretion): bupivacaine(0.5 %) 10 ml 10 ml Infiltration once dd2 Medication: 02:20 VIS not applicable for this client. dd2 Intake: 02:47 IV: 50ml; Total: 50ml. dd2 03:17 IV: 1000ml; Total: 1050ml. dd2 03:35 IV: 1000ml; Total: 2050ml. dd2 03:50 IV: 1000ml; Total: 3050ml. dd2 Outcome: 05:53 Discharge ordered by MD. hernandez 06:06 Discharged to home ambulatory, 06:06 Condition: improved 06:06 Discharge instructions given to patient, Instructed on discharge instructions, follow up and referral plans. medication usage, Demonstrated understanding of instructions, follow-up care, medications, Prescriptions given X 4, 06:07 Patient left the ED. ss Signatures: Dispatcher [employer] EDMS Jeanne Barron, RN RN ss Edwin Bojorquez Sergey, MD MD sp4 Silvina Perera gm2 Paco Isaac RN RN bm8 HAZEL WASHBURN RN RN dd2 Corrections: (The following items were deleted from the chart) 02:16 01:48 First set of blood cultures drawn oe oe 02:55 02:55 Bupivacaine Infiltration (0.5 %) 10 ml 10 ml Infiltration bm8 bm8 05:53 02:55 Bupivacaine Infiltration (0.5 %) 10 ml 10 ml Infiltration in affected area; by dd2 provider moe
[2024-12-15 06:29] VITALS: TEMP 99
[2024-12-15 06:30] VITALS: BP 137/79; O2SAT 96
== END 2024-12-15 06:07 | disposition home or self-care (01) ==
LOC: ER 01:17
DX: K05.00 Acute gingivitis, plaque induced (principal); K05.6 Periodontal disease, unspecified
CPT/HCPCS: 87040 ×2; 85025; 36415; 86900; 86850; 85610; 86901; 83605; 83690; 80053; 70491; Q9967; J1100; J2405; J7030